=== PATIENT | female | born 1995 | race American Indian/Alaskan Native ===

== ENCOUNTER 2020-06-21 09:59 | Emergency (ER) | payer MEDICAID ==
[2020-06-21 10:19] VITALS: BP 135/82
--- NOTE | 2020-06-21 11:38 | Emergency Department Report ---
Upper Extremity - HPI Chief Complaint: Extremity Injury, Upper Stated Complaint: FLANK PAIN Upper Extremity: Right Shoulder Occurred When: >5 Days Mechanism: Fall Severity: moderate Symptoms: Yes Pain with Movement (little murphy pain ), No Deformity, No Numbness, No Swelling Other History: 25-year-old -[place] female presents to the emergency room for 2-week history of having a fall and then today she had a near fall on her right shoulder. Patient states that the pain is sharp and intermittent. She reports she is able to move her extremities without difficulty but moving slow. Patient reports she took 2 Goody powders this morning just prior to arrival. She states that is taken the edge off the pain. ED Review of Systems ROS: Stated complaint: FLANK PAIN Other details as noted in HPI Comment: All other systems reviewed and negative ED Past Medical Hx - Past Medical History Hx Hypertension: No Hx Congestive Heart Failure: No Hx Diabetes: No Hx Deep Vein Thrombosis: No Hx Renal Disease: No Hx Sickle Cell Disease: No Hx Seizures: No Hx Asthma: No Hx COPD: No Hx HIV: No - Social History Smoking Status: Never Smoker Substance Use Type: Alcohol - Medications Home Medications: Home Medications Medication Instructions Recorded Confirmed Last Taken Type Baclofen 5 mg PO Q8H PRN #15 tablet 06/21/20 Unknown Rx Ibuprofen [Motrin 600 MG tab] 600 mg PO Q6H PRN #30 tablet 06/21/20 Unknown Rx Upper Extremity Exam - Exam General: Vital signs noted. No distress. Alert and acting appropriately. Head and Torso: No HEENT Abnormality, No Neck Tenderness, No Chest/Lungs Abnormality, No Abdominal Tenderness, No Back Tenderness Shoulder Exam: Yes Shoulder Tenderness, Yes Normal Range of Motion in Shoulder, Yes AC Joint Tenderness, No Clavicle Tenderness, No Shoulder Deformity Arm Exam: No Arm/Humerus Tenderness, No Arm Deformity Elbow: No Elbow Tenderness, No Normal Range of Motion in Elbow, No Elbow Deformity Forearm: No Forearm Tenderness, No Forearm Deformity, No Pain with Pronation, No Pain with Supination Wrist: Yes Normal ROM in Wrist, No Wrist Tenderness, No Wrist Deformity, No Snuffbox Tenderness, No Pain with Axial Thumb Compression Hand: Yes Normal ROM in Digit(s), No Hand Tenderness, No Hand Deformity, No Digit Tenderness, No Digit(s) Deformity, No Tendon Dysfunction CMS Exam: No Broken Skin, No Normal Distal Pulses, No Normal Capillary Refill, No Normal Distal Sensation ED Course Vital Signs 06/21/20 10:16 Temperature 98.3 F Pulse Rate 84 Respiratory 18 Rate Blood Pressure 135/82 O2 Sat by Pulse 98 Oximetry ED Medical Decision Making - Medical Decision Making 25-year-old -[place] female presents to the emergency room for 2-week history of having a fall and then today she had a near fall on her right shoulder. Patient states that the pain is sharp and intermittent. She reports she is able to move her extremities without difficulty but moving slow. Patient reports she took 2 Goody powders this morning just prior to arrival. She states that is taken the edge off the pain. Recommend ibuprofen and baclofen increase your fluid intake follow-up with the orthopedic provider. Critical care attestation.: If time is entered above; I have spent that time in minutes in the direct care of this critically ill patient, excluding procedure time. ED Disposition Clinical Impression: Pain of right scapula Strain of shoulder, right Qualifiers: Encounter type: initial encounter Qualified Code(s): S46.911A - Strain of unspecified muscle, fascia and tendon at shoulder and upper arm level, right arm, initial encounter Disposition: DC-01 TO HOME OR SELFCARE Is pt being admited?: No Does the pt Need Aspirin: No Condition: Stable Instructions: Chest Pain (ED), Muscle Strain, [id number] Additional Instructions: Please take muscle relaxant and pain medication as prescribed. You can follow- up with an orthopedic provider. Prescriptions: Baclofen 5 mg PO Q8H PRN #15 tablet PRN Reason: Muscle Spasm Ibuprofen [Motrin 600 MG tab] 600 mg PO Q6H PRN #30 tablet PRN Reason: Mild Pain Unrelieved By Apap Referrals: MATTHIEU ESCUDERO MD [Staff Physician] - 3-5 Days
== END 2020-06-21 12:45 | disposition home or self-care (01) ==
LOC: ED 09:59
DX: S46.911A Strain of unspecified muscle, fascia and tendon at shoulder and upper arm level, right arm, initial encounter (principal); Z79.899 Other long term (current) drug therapy; W18.30XA Fall on same level, unspecified, initial encounter; Y93.89 Activity, other specified; Y92.89 Other specified places as the place of occurrence of the external cause; Y99.8 Other external cause status
CPT/HCPCS: 99282